=== PATIENT | female | born 1985 | race African-American/Black ===

== ENCOUNTER 2019-10-26 11:47 | Emergency (ER) | payer OTHER ==
[~2019-10-26] VITALS: Ht 162.6 cm; Wt 70.3 kg
[2019-10-26] MEDS ORDERED: NORVASC 2.5 MG2.5 M1 PO (12:53)
[2019-10-26] MEDS ORDERED: COZAAR 25 MG TA25 M2 PO (15:43)
[2019-10-26] MEDS ORDERED: BUTALB-APAP-CA1 EACH PO (15:59)
[2019-10-26 16:13] VITALS: BP 126/92
== END 2019-10-26 16:13 | disposition home or self-care (01) ==
LOC: ER 11:47
DX: R51 Headache (principal)